=== PATIENT | male | born 1960 | race African-American/Black ===

== ENCOUNTER 2020-09-03 12:01 | Outpatient (REF) | payer OTHER, SELFPAY ==
[2020-09-03 14:12] LABS: Anion Gap 13 (12-20); Blood Urea Nitrogen 16 mg/dL (9-16); Calcium 9.3 mg/dL (8.4-10.2); Carbon Dioxide 23 mmol/L (22-29); Chloride 106 mmol/L (96-108); Estimated Glomerular Filt Rate 50; Glucose Random 113 mg/dL (60-115); Potassium 4.8 mmol/l (3.3-5.1); Sodium 137 mmol/L (135-145)
== END 2020-09-03 12:02 | disposition home or self-care (01) ==
LOC: HO.LAB 12:01
PROVIDERS: PCP Nurse Practitioner Family; Visit Provider Internal Medicine
DX: E87.6 Hypokalemia (principal)
CPT/HCPCS: 80048

== ENCOUNTER → 2020-09-11 14:03 | Outpatient (BNVA) | payer OTHER, SELFPAY | PROVIDERS: PCP Nurse Practitioner Family; Referring Provider Nurse Practitioner Family; Visit Provider Internal Medicine | DX: I95.0 Idiopathic hypotension (principal); I95.1 Orthostatic hypotension; Z79.899 Other long term (current) drug therapy | CPT/HCPCS: 99212 ==

== ENCOUNTER → 2020-11-27 13:30 | Outpatient (BNVA) | payer OTHER, SELFPAY | PROVIDERS: Visit Provider Internal Medicine | DX: Z13.89 Encounter for screening for other disorder (principal) | CPT/HCPCS: Q3014 ==

== ENCOUNTER → 2020-12-04 13:42 | Outpatient (BNVA) | payer OTHER, SELFPAY | PROVIDERS: PCP Nurse Practitioner Family; Visit Provider Internal Medicine | DX: R55 Syncope and collapse (principal); R42 Dizziness and giddiness; I95.0 Idiopathic hypotension; I95.1 Orthostatic hypotension | CPT/HCPCS: 99212 ==

== ENCOUNTER 2020-12-17 10:25 | Outpatient (REF) | payer OTHER, SELFPAY ==
--- NOTE | ~2020-12-17 | CT_ITS ---
EXAMINATION: CT CHEST WITHOUT CONTRAST CLINICAL INFORMATION: Follow-up pulmonary nodules COMPARISON: Previous chest CT most recent December 2019 TECHNIQUE: Multidetector volumetric CT imaging of the chest was done. Axial MIP volume rendering provided. Sagittal and coronal reformatted images were obtained. This CT examination was performed using dose optimization techniques as appropriate, variously including the following: *Automated exposure control *Adjustment of mA and/or kV according to patient size (this includes techniques or standardized protocols for targeted exams where dose is matched to indication/reason for exam; i.e. extremities or head) *Use of iterative reconstruction technique DLP: 215 mGy-cm FINDINGS: SWITCHBOARD OPERATOR ASSISTANT: Unremarkable LUNGS: The bilateral pulmonary nodules are stable. Largest pulmonary nodule is an 8 mm peripheral or subpleural right lower lobe nodule axial image 486 series 7. No new pulmonary nodule is seen. There is chronic scarring or subsegmental atelectasis in the lingula that is unchanged. MEDIASTINUM: There is wall thickening of the distal thoracic esophagus. The mediastinum is otherwise normal. PLEURA: There is no pleural effusion. No pleural mass or thickening. AXILLA: There are small bilateral axillary lymph nodes. No enlarged lymph nodes or chest wall mass is seen. UPPER ABDOMEN: There is diverticulosis of the colon. There is a left renal cyst that is partially visualized. There is a lipoma of the right lateral upper abdominal wall that is partially visualized OSSEOUS STRUCTURES: There is an old right posterior seventh rib fracture.. CT/CT chest wo con IMPRESSION: Stable pulmonary nodules. Question wall thickening of the distal thoracic esophagus.
== END 2020-12-17 10:26 | disposition home or self-care (01) ==
LOC: HO.CT 10:25
PROVIDERS: Visit Provider Internal Medicine
DX: R91.8 Other nonspecific abnormal finding of lung field (principal); F17.200 Nicotine dependence, unspecified, uncomplicated
CPT/HCPCS: 71250

== ENCOUNTER 2021-01-04 11:36 | Outpatient (REF) | payer OTHER, SELFPAY ==
[2021-01-04 13:04] LABS: MANUAL DIFF FLAG NO
[2021-01-04 13:23] LABS: Basophils Percent Auto 0.6 % (0-2); Eosinophils Absolute Auto 0.3 X10*3/uL (0.0-0.4); Eosinophils Percent Auto 4.3 % (0-4); Hematocrit 42.6 % (42-52); Hemoglobin 13.9 g/dl (14.0-18.0); Imm Gran Abs Auto 0.02 X10*3/uL (0.00-0.03); Imm Gran Pct Auto 0.3 % (0.0-0.4); Lymphocytes Absolute Auto 2.5 X10*3/uL (1.2-4.9); Lymphocytes Percent Auto 37.5 % (20-40); Mean Corpuscular HGB Conc 32.6 g/dl (31.0-36.0); Mean Corpuscular Hemoglobin 30.8 pg (27.0-33.0); Mean Corpuscular Volume 94.5 fL (80-98); Mean Platelet Volume 11.5 fL (9.4-12.4); Monocytes Absolute Auto 0.5 X10*3/uL (0.1-1.2); Monocytes Percent Auto 8.3 % (2-11); Neutrophils Absolute Auto 3.2 X10*3/uL (2.0-8.3); Platelet Count 222 X10*3/uL (160-400); Red Blood Count 4.51 X10*6/uL (4.60-5.80); Red Cell Distribution Width 13.5 % (11.0-16.0); White Blood Count 6.5 X10*3/uL (4.8-10.8)
[2021-01-04 13:27] LABS: Albumin Level 4.1 g/dL (3.5-5.0); Cholesterol 161 mg/dL; HDL Cholesterol 35 mg/dL; Iron 91 mcg/dL (45-160); LDL Cholesterol Calculated 98 mg/dl; Magnesium 2.3 mg/dL (1.6-2.6); Percent Iron Saturation 29 % (15-50); Phosphorus 3.5 mg/dL (2.7-4.5); Total Iron Binding Capacity 310 mcg/dL (228-428); Triglycerides 140 mg/dL; Unsaturated Iron Binding 219 ug/dL
[2021-01-04 13:34] LABS: Estimated Average Glucose 131 mg/dL; Hemoglobin A1c % 6.2 %
[2021-01-04 13:46] LABS: Anion Gap 12 (12-20); Blood Urea Nitrogen 16 mg/dL (9-16); Calcium 9.3 mg/dL (8.4-10.2); Carbon Dioxide 26 mmol/L (22-29); Chloride 106 mmol/L (96-108); Estimated Glomerular Filt Rate 55; Glucose Random 124 mg/dL (60-115); Potassium 3.8 mmol/L (3.3-5.1); Sodium 140 mmol/L (135-145)
[2021-01-04 13:51] LABS: Ferritin 36 ng/mL (20-250)
[2021-01-04 14:42] LABS: Renal w Reflex Lab Use Only Order verified
[2021-01-07 16:32] LABS: Calcium (PTHI) 9.4 mg/dL (8.6-10.3); PTHI 61 pg/mL (14-64)
== END 2021-01-04 11:37 | disposition home or self-care (01) ==
LOC: HO.LAB 11:36
PROVIDERS: Absent Provider Internal Medicine Nephrology; PCP Nurse Practitioner Family; Visit Provider Internal Medicine
DX: I95.1 Orthostatic hypotension (principal); N17.9 Acute kidney failure, unspecified
CPT/HCPCS: 36415; 80048; 80061; 82040; 82306; 82728; 83036; 83540; 83735; 83970; 84100; 84550; 85025

== ENCOUNTER → 2021-01-16 13:02 | Outpatient (REF) | payer OTHER, SELFPAY ==
--- NOTE | 2021-01-16 13:05 | CA_ITS ---
Transthoracic Echocardiogram Patient (Last, First, Middle): Addi Delgado E Gender: Male Date of : 1960 Age: 60 Procedure Date: 01/16/2021 Procedure Type: Transthoracic Echocardiogram Location: OP Height: 182.88 cm Weight: 110.68 kg BSA: 2.32 m2 Heart Rate: bpm BP: 116 / 56 mmHg Sap Bpc Architect: Referring MD: Massimo Alberto MD Grain Origination Specialist: Nadir Dunlap MD Symptoms: I95.1 - Orthostatic hypotension Study Quality: Fair ECG Rhythm: Sinus Conclusions: - 1. Low normal LV systolic function with moderate LVH with impaired relaxation filling pattern 2. Moderately dilated left atrium 3. Mild mitral regurgitation 4. Normal RV systolic pressure 5. No pericardial effusion Findings Left Ventricle Normal left ventricular cavity size. There is moderately increased left ventricular wall thickness. The left ventricular systolic function is low normal. The visually estimated ejection fraction is between 50-55%. Spectral Doppler is indicative of an impaired relaxation filling pattern. E/E prime ratio is between 8 and 15 consistent with indeterminate filling pressures. Right Ventricle Normal right ventricular cavity size and systolic function. Atria The left atrium is moderately dilated. There is no evidence of interatrial shunt. The right atrium is likely dilated. Aortic Valve The aortic valve structure and function is likely normal. There is no aortic valve stenosis. There is no aortic valve regurgitation. Mitral Valve Normal mitral valve structure and function. There is mild mitral valve regurgitation. There is no mitral valve stenosis. Pulmonic Valve The pulmonic valve was not well visualized. Tricuspid Valve Likely normal tricuspid valve structure and function. There is mild tricuspid valve regurgitation. The right ventricular systolic pressure is normal. The right ventricular systolic pressure is 30 mmHg. Normal right atrial pressure. There is no evidence of pulmonary hypertension. Great Vessels All visible segments of the aorta are normal in size. The pulmonary artery was not well visualized. Venous The inferior vena cava is normal in size and collapses greater than 50% with inspiration. Pericardium/Pleural There is no evidence of pericardial effusion. Prior Study Comparison Changes noted compared to prior study dated: 07/22/2018. LVH is more prominent Measurements 2D Linear Measurements IVSd: 1.56 0.6-0.9/0.6-1.0 cm LVIDd: 5.09 3.9-5.3/4.2-5.9 cm LVIDs: 3.53 2.0-3.6 cm LVPWd: 1.52 0.7-1.1 cm Ao Root: 3.45 2.1-3.5 cm LV Mass: 429.31 67-162/88-224 g LVOT Diam: 2.47 3.0+(-)1.3 cm Mitral Valve MV Pk E: 0.64 MV PK A: 0.82 MV Decel Time: 139.21 E/A: 0.78 E'Lateral: 0.06 E'Medial: 0.04 Decel Dane: 4.61 Aortic Valve AoV Pk Taiwo: 1.04 AoV Mn Taiwo: 0.78 AoV VTI: 0.22 AoV Pk Grad: 4.30 Aov Mn Grad: 2.72 LVOT LVOT Pk Taiwo: 0.83 LVOT Mn Taiwo: 0.53 LVOT VTI: 0.19 LVOT Pk Grad: 2.75 LVOT Mn Grad: 1.35 LVOT Diam: 2.47 LVOT Area: 4.78 Diastolic Function MV Pk E: 0.64 MV Pk A: 0.82 E/A: 0.78 E'Medial: 0.04 E' Laterial: 0.06 Tricuspid Valve TR Pk Atiwo: 2.61 TR Pk Grad: 27.27 RA Press: 3.00 RVSP: 30.00 Great Vessels Aorta Ao Root-2D: 3.45 2.0-3.7 cm Pulmonary Valve PV Pk Taiwo: 0.98 Peak PV Grad: 3.86 Updated in Other Vendor System with Status of Final Nadir Dunlap MD electronically signed on 01/16/2021 5:04:54 PM with status of Final
== END ==
LOC: HO.CARD 13:02
PROVIDERS: Visit Provider Internal Medicine
DX: I95.1 Orthostatic hypotension (principal)
CPT/HCPCS: 93306

== ENCOUNTER → 2021-04-04 14:57 | Outpatient (BNVA) | payer OTHER, SELFPAY | PROVIDERS: PCP Nurse Practitioner Family; Referring Provider Nurse Practitioner Family; Visit Provider Internal Medicine | DX: I95.1 Orthostatic hypotension (principal); R42 Dizziness and giddiness; I95.0 Idiopathic hypotension | CPT/HCPCS: 93005; 99212 ==

== ENCOUNTER → 2021-04-26 09:18 | Outpatient (BNVA) | payer OTHER, SELFPAY | PROVIDERS: PCP Nurse Practitioner Family; Visit Provider Nurse Practitioner | DX: K21.9 Gastro-esophageal reflux disease without esophagitis (principal); K58.2 Mixed irritable bowel syndrome; K31.84 Gastroparesis | CPT/HCPCS: Q3014 ==

== ENCOUNTER 2021-05-20 07:58 | Emergency (ER) | payer OTHER, SELFPAY ==
--- NOTE | ~2021-05-20 | XR_ITS ---
EXAMINATION: RIGHT FOOT AND ANKLE X-RAY CLINICAL INFORMATION: Fall. Swelling. COMPARISON: None TECHNIQUE: 3 views of the right foot and 3 views of the right ankle FINDINGS: Right foot: Bone alignment is normal. There is a fracture of the right distal fibular shaft. No other fracture is seen. There is arthritis at the first MTP joint. Soft tissues are unremarkable. Right ankle: There is a fracture of the distal fibular shaft. There is slight lateral and posterior displacement of the lateral malleolus with respect to the more proximal shaft. No other fracture is seen. The ankle mortise is normal. There is lateral soft tissue swelling. XR/XR ankle RT 2V IMPRESSION: Fracture of the distal right fibular shaft.
--- NOTE | ~2021-05-20 | XR_ITS ---
EXAMINATION: RIGHT FOOT AND ANKLE X-RAY CLINICAL INFORMATION: Fall. Swelling. COMPARISON: None TECHNIQUE: 3 views of the right foot and 3 views of the right ankle FINDINGS: Right foot: Bone alignment is normal. There is a fracture of the right distal fibular shaft. No other fracture is seen. There is arthritis at the first MTP joint. Soft tissues are unremarkable. Right ankle: There is a fracture of the distal fibular shaft. There is slight lateral and posterior displacement of the lateral malleolus with respect to the more proximal shaft. No other fracture is seen. The ankle mortise is normal. There is lateral soft tissue swelling. XR/XR foot RT min 3V IMPRESSION: Fracture of the distal right fibular shaft.
[2021-05-20 08:21] VITALS: BP 102/63; PULSE 85; RESP 18; TEMP 36.6; O2SAT 96; BMI 34.0
--- NOTE | 2021-05-20 10:28 | ED.LOWEXIN ---
HPI - Extremity Injury (Lower) General Chief Complaint: Extremity Injury, Lower Stated Complaint: possible broken foot Time Seen by Provider: 05/20/21 09:13 Source: patient Mode of arrival: ambulatory History of Present Illness HPI Narrative: 60-year-old male with a past medical history of asthma, orthostatic hypotension, smoker, presenting to the ED c/o right ankle pain and swelling with inability to ambulate since yesterday morning s/p fall/syncopal episode. Patient reports woke up, stood up and had syncopal episode, landing on foot, denies head trauma, reports multiple syncopal episodes with postural changes which he has been dealing with chronically x6 months due to orthostatic hypotension. 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 Denies CP/SOB, headache, nausea/vomiting. Reports mild foot paresthesias. MD complaint: ankle injury and foot injury Related Data Home Medications Medication Instructions Recorded Confirmed albuterol sulfate 90 mcg/actuation 1 inh INHALATION QID 09/11/20 04/04/21 aerosol inhaler (Ventolin HFA) atorvastatin 10 mg tablet 10 mg PO DAILY 09/11/20 04/04/21 beclomethasone dipropionate 80 1 inh INHALATION BID 09/11/20 04/04/21 mcg/actuation HFA breath activated aerosol (Qvar RediHaler) multivitamin 1 tab PO DAILY 09/11/20 04/04/21 venlafaxine 150 mg 150 mg PO DAILY 09/11/20 04/04/21 capsule,extended release 24 hr (Effexor XR) lorazepam 1 mg tablet 1 mg PO BID PRN tab 11/27/20 04/04/21 aripiprazole 20 mg tablet 20 mg PO BEDTIME 04/04/21 04/04/21 modafinil 200 mg tablet 200 mg PO BEDTIME 04/04/21 04/04/21 naltrexone 50 mg tablet 50 mg PO QAM 04/04/21 04/04/21 Previous Rx's Medication Instructions Recorded midodrine 10 mg tablet 10 mg PO TID #270 cap 11/01/20 potassium chloride 20 mEq 40 meq PO BID #120 cap 01/02/21 tablet,extended release fludrocortisone 0.1 mg tablet 0.6 mg PO DAILY #180 tab 01/14/21 meclizine 25 mg tablet 25 mg PO DAILY PRN #30 cap 01/30/21 sodium chloride 1 gram tablet 2,000 mg PO DAILY 30 Days #60 cap 03/04/21 metoclopramide HCl 5 mg tablet 5 - 10 mg PO QID PRN #180 cap 03/25/21 omeprazole 20 mg capsule,delayed 20 mg PO BID #60 cap 05/07/21 release ibuprofen 600 mg tablet 600 mg PO Q8H PRN #14 tab 05/20/21 Allergies Allergy/AdvReac Type Severity Reaction Status Date / Time Fish Containing Products Allergy Severe ANAPHYLAXIS Verified 04/26/21 09:19 nut - unspecified [nut] Allergy Severe ANAPHYLAXIS Verified 04/26/21 09:19 Review of Systems Review of Systems: Constitutional: No Fever, No Chills Cardiovascular: No Chest Pain, No SOB Respiratory: No Cough, No Dyspnea Gastrointestinal: No Nausea, No Vomiting, No Abdominal pain Musculoskeletal: + joint pain, No Myalgias, + Joint Swelling Skin: No Skin Lesions, No rash Neuro: No Weakness, No Numbness, + Paresthesias, +syncope, No Dizziness, No Headache Yes all other systems are reviewed and are negative [facility] Past Medical History Attestation statement: The following information was validated with the patient. Medical History (Updated 05/20/21 @ 12:08 by MEHRAN Gordon) Asthma Dizziness and giddiness Idiopathic hypotension Orthostatic hypotension Pulmonary nodules Smoker Syncope and collapse Surgical History History of esophagogastroduodenoscopy (EGD) History of hernia repair History of tonsillectomy Hx of colonoscopy Family History Family History Father No problems noted. Mother No problems noted. Social History Social History Alcohol intake: never Cigarettes Per Day: 10 Smoked in Last 30 Days: No Use of substances other than those prescribed or required for medical reasons: No Advance Directives: No Advance Directives Information Provided: No Physical Exam Vital Signs: Vital Signs: Last Vital Signs Temp 97.9 F 05/20/21 08:21 Pulse 85 05/20/21 08:21 Resp 18 05/20/21 08:21 BP 102/63 05/20/21 08:21 Pulse Ox 96 08/02/21 08:21 Body Mass Index 34.0 Const: General: cooperative and healthy appearing Orientation/consciousness: patient oriented x3 Limitations: no limitations HENMT: Head: Yes normal to inspection Ears: hearing grossly normal bilaterally General nose exam: Normal external nose present Face and sinus: Yes normal facial exam Eyes: General: appearance normal, both eyes and all related structures EOM: EOMs intact bilaterally Neck: Neck: Yes normal visual inspection Resp: Effort & Inspection: normal respiratory effort Auscultation: clear to auscultation bilaterally Cardio: Rate: regular rate Heart sounds: S1 normal heart sound present and S2 normal heart sound present Skin: Rashes: no rashes Wounds: no wounds Neuro: General: patient oriented x3 Gait exam (Neuro): Normal gait present Extrem: General: Yes normal to inspection Course Course Course Narrative: XR ankle RT 2V IMPRESSION: Fracture of the distal right fibular shaft.? >> results discussed with patient, will place and posterior short-leg with stirrup and supplied with crutches to be nonweightbearing and follow up with Orthopedics in 1 week -1229--received a call from pharmacy patient is currently taking Naltrexone daily for cravings, cancelled [place] prescription MDM - Extremity Injury (Lower) MDM Narrative Medical decision making narrative: 60-year-old male with a past medical history of asthma, orthostatic hypotension, smoker, presenting to the ED c/o right ankle pain and swelling with inability to ambulate since yesterday morning s/p fall/syncopal episode. Patient reports woke up, stood up and had syncopal episode, landing on foot, denies head trauma, reports multiple syncopal episodes with postural changes which he has been dealing with chronically x6 months due to orthostatic hypotension. 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 Denies CP/SOB, headache, nausea/vomiting. Reports mild foot paresthesias. Medical Records Attestation: I reviewed the patient's medical records. Lab Data Attestation: I reviewed the patient's lab results. Discharge Plan Discharge Clinical Impression: Fracture of shaft of right fibula Qualifiers: Encounter type: initial encounter Fracture type: closed Fracture morphology: unspecified fracture morphology Qualified Code(s): S82.401A - Unspecified fracture of shaft of right fibula, initial encounter for closed fracture Patient Disposition: Home, Self-Care Instructions: Ankle Fracture (ED) Additional Instructions: You have a fracture of your ankle Keep splint on, dry, and clean, you need to follow-up with resource specialist teacher in 1 week DO NOT PUT ANY WEIGHT ON HER RIGHT LEG ICE AND ELEVATE YOUR RIGHT LEG IN ADDITION TAKE IBUPROFEN AND TYLENOL, HOWEVER BE AWARE KAYCEE HAS TYLENOL MIXED IN DO NOT EXCEED 4 G OF TYLENOL IN 1 DAY If pain becomes unbearable, toes become numb or increasingly swollen wrist move Vinayak wrap and return to the ED immediately Prescriptions: New ibuprofen 600 mg tablet 600 mg PO Q8H PRN (Reason: fever or pain) Qty: 14 RF: 0 No Action midodrine 10 mg tablet 10 mg PO TID Qty: 270 RF: 3 potassium chloride 20 mEq tablet extended release 40 meq PO BID Qty: 120 RF: 0 fludrocortisone 0.1 mg tablet 0.6 mg PO DAILY Qty: 180 RF: 5 meclizine 25 mg tablet 25 mg PO DAILY PRN (Reason: for vertigo) Qty: 30 RF: 3 sodium chloride 1 gram tablet 2,000 mg PO DAILY 30 Days Qty: 60 RF: 5 metoclopramide HCl 5 mg tablet 5 - 10 mg PO QID PRN (Reason: nausea and vomiting) Qty: 180 RF: 4 omeprazole 20 mg capsule,delayed release(DR/EC) 20 mg PO BID Qty: 60 RF: 6 atorvastatin 10 mg tablet 10 mg PO DAILY RF: 0 multivitamin Tablet 1 tab PO DAILY RF: 0 venlafaxine [Effexor XR] 150 mg capsule,extended release 24hr 150 mg PO DAILY RF: 0 albuterol sulfate [Ventolin HFA] 90 mcg/actuation HFA aerosol inhaler 1 inh inhalation QID RF: 0 Qvar RediHaler 80 mcg/actuation HFA aerosol breath activated 1 inh inhalation BID RF: 0 lorazepam 1 mg tablet 1 mg PO BID PRNRF: 0 aripiprazole 20 mg tablet 20 mg PO BEDTIME RF: 0 modafinil 200 mg tablet 200 mg PO BEDTIME RF: 0 naltrexone 50 mg tablet 50 mg PO QAM RF: 0 Referrals: Sailaja Choi MD [Physician] - 1 week Interventions: ED Discharge Assessment Last Done: 05/20/21 12:18 Discharge Date/Time: 05/20/21 12:22
[2021-05-20] MEDS: Ibuprofen 800 MG TABLET PO (12:15)
[2021-05-20] MEDS: oxyCODONE HCl Immed Release 5 MG TABLET PO (12:15)
== END 2021-05-20 12:22 | disposition home or self-care (01) ==
PROVIDERS: Emergency Provider Emergency Medicine; PCP Nurse Practitioner Family
DX: S82.401A Unspecified fracture of shaft of right fibula, initial encounter for closed fracture (principal); X50.1XXA Overexertion from prolonged static or awkward postures, initial encounter; I95.1 Orthostatic hypotension; Y93.89 Activity, other specified; Y92.019 Unspecified place in single-family (private) house as the place of occurrence of the external cause; Y99.9 Unspecified external cause status; F17.210 Nicotine dependence, cigarettes, uncomplicated
CPT/HCPCS: 29515; 73600; 73630; 99283; 99284

== ENCOUNTER → 2021-05-24 07:52 | Outpatient (BNVA) | payer OTHER, SELFPAY | PROVIDERS: PCP Nurse Practitioner Family; Visit Provider Physician Assistant | DX: S82.831A Other fracture of upper and lower end of right fibula, initial encounter for closed fracture (principal) | CPT/HCPCS: 99202 ==

== ENCOUNTER 2021-05-30 05:58 | Day surgery (SDC) | payer OTHER, SELFPAY ==
--- NOTE | 2021-05-27 14:03 | P.CONAN_ITS ---
Documented by User: Peggy Colinney 05/27/21 14:08 HPI - Anesthesia Eval Consult details Narrative: 60yo M for Right Ankle Fracture ORIF Orthostatic hypotn: Midodrine, florinef, salt supplement. Follows cardiac and renal PMFSH Active Problems Active Problems: All Active Problems (Updated 05/24/21 @ 08:53 by Philipp Gomez PA-C) Closed fracture of right distal fibula (Acute) Tubular adenoma of colon (Acute) Smoker (Acute) Pulmonary nodules (Acute) Asthma (Acute) Gastroparesis (Acute) Irritable bowel syndrome with both constipation and diarrhea (Acute) GERD (gastroesophageal reflux disease) (Acute) Orthostatic hypotension (Acute) Idiopathic hypotension (Acute) Dizziness and giddiness (Acute) Syncope and collapse (Acute) Past Medical History Medical History Asthma Dizziness and giddiness Idiopathic hypotension Orthostatic hypotension Pulmonary nodules Smoker Syncope and collapse Family History Family History Father No problems noted. Mother No problems noted. Surgical History Surgical History History of esophagogastroduodenoscopy (EGD) History of hernia repair History of tonsillectomy Hx of colonoscopy Social History Social History Alcohol intake: never Patient Tobacco Use Status: Current everyday Tobacco user Tobacco use type: Cigarette Cigarettes Per Day: 10 Are you DNR?: No Advance Directives: No Advance Directives Information Provided: Yes Advance Directives on File: No Current occupational status: disabled Current occupation: Rt handed Meds Allergies Allergy/AdvReac Type Severity Reaction Status Date / Time Fish Containing Products Allergy Severe ANAPHYLAXIS Verified 05/24/21 08:13 nut - unspecified [nut] Allergy Severe ANAPHYLAXIS Verified 05/24/21 08:13 Home Medications Medication Instructions Recorded Confirmed Last Taken Type albuterol sulfate 90 mcg/actuation 1 inh INHALATION QID 09/11/20 04/04/21 05/30/21 History aerosol inhaler (Ventolin HFA) atorvastatin 10 mg tablet 10 mg PO DAILY 09/11/20 04/04/21 05/30/21 History beclomethasone dipropionate 80 1 inh INHALATION BID 09/11/20 04/04/21 05/30/21 History mcg/actuation HFA breath activated aerosol (Qvar RediHaler) multivitamin 1 tab PO DAILY 09/11/20 04/04/21 05/30/21 History venlafaxine 150 mg 150 mg PO DAILY 09/11/20 04/04/21 05/30/21 History capsule,extended release 24 hr (Effexor XR) lorazepam 1 mg tablet 1 mg PO BID PRN tab 11/27/20 04/04/21 Unknown History aripiprazole 20 mg tablet 20 mg PO BEDTIME 04/04/21 04/04/21 Unknown History modafinil 200 mg tablet 200 mg PO BEDTIME 04/04/21 04/04/21 Unknown History naltrexone 50 mg tablet 50 mg PO QAM 04/04/21 04/04/21 05/30/21 History Exam Exam Date and Time: May 27, 2021 1403 Pertinent Lab Results Pertinent Lab Results: Laboratory Tests 01/04/21 01/04/21 12:06 12:06 WBC 6.5 Hgb 13.9 L Hct 42.6 Plt Count 222 Sodium 140 Potassium 3.8 Chloride 106 Carbon Dioxide 26 BUN 16 Creatinine 1.33 Narrative Narrative: EKG 03/2021 sinus rhythm, 87/Min; no significant ST-T changes and otherwise unremarkable ECHO 12/2020 Conclusions: -? 1. Low normal LV systolic function with moderate LVH with ? ? impaired relaxation filling pattern? 2. Moderately dilated left atrium? 3. Mild mitral regurgitation ? 4. Normal RV systolic pressure ? 5. No pericardial effusion ? Assessment and Plan Assessment Anesthesia Assessment: Chart Reviewed Documented by User: Ray Oshea MD 05/30/21 09:29 [facility] Past Medical History Medical History Asthma Dizziness and giddiness Idiopathic hypotension Orthostatic hypotension Pulmonary nodules Smoker Syncope and collapse Family History Family History Father No problems noted. Mother No problems noted. Family history of problems with anesthesia: No Surgical History Surgical History History of esophagogastroduodenoscopy (EGD) History of hernia repair History of tonsillectomy Hx of colonoscopy History of Problems with Anesthesia: No Social History Social History Alcohol intake: never Patient Tobacco Use Status: Current everyday Tobacco user Tobacco use type: Cigarette Cigarettes Per Day: 10 Are you DNR?: No Advance Directives: No Advance Directives Information Provided: Yes Advance Directives on File: No Current occupational status: disabled Current occupation: Rt handed Meds Allergies Allergy/AdvReac Type Severity Reaction Status Date / Time Fish Containing Products Allergy Severe ANAPHYLAXIS Verified 05/24/21 08:13 nut - unspecified [nut] Allergy Severe ANAPHYLAXIS Verified 05/24/21 08:13 Home Medications Medication Instructions Recorded Confirmed Last Taken Type albuterol sulfate 90 mcg/actuation 1 inh INHALATION QID 09/11/20 04/04/21 05/30/21 History aerosol inhaler (Ventolin HFA) atorvastatin 10 mg tablet 10 mg PO DAILY 09/11/20 04/04/21 05/30/21 History beclomethasone dipropionate 80 1 inh INHALATION BID 09/11/20 04/04/21 05/30/21 History mcg/actuation HFA breath activated aerosol (Qvar RediHaler) multivitamin 1 tab PO DAILY 09/11/20 04/04/21 05/30/21 History venlafaxine 150 mg 150 mg PO DAILY 09/11/20 04/04/21 05/30/21 History capsule,extended release 24 hr (Effexor XR) lorazepam 1 mg tablet 1 mg PO BID PRN tab 11/27/20 04/04/21 Unknown History aripiprazole 20 mg tablet 20 mg PO BEDTIME 04/04/21 04/04/21 Unknown History modafinil 200 mg tablet 200 mg PO BEDTIME 04/04/21 04/04/21 Unknown History naltrexone 50 mg tablet 50 mg PO QAM 04/04/21 04/04/21 05/30/21 History Exam Airway Mallampati Class: II TM Dist: >3cm Neck ROM: Full Assessment and Plan Final Anesthetic Review Family History of Problems with Anesthesia: No History of Problems with Anesthesia: No NPO: Yes ASA Class: III Final Preanesthetic Review: No Changes in Pt Med Stat, Meds/Allgs Chart Revie thu, Consent Obtained/Reviewed and Anes Risks/Benef Reviewed Patient Risk: Intermediate Procedure Risk: Low Anesthetic Plan Anesthetic Plan: GA Disposition: Standard PACU
[2021-05-29 07:59] VITALS: BMI 34.0
[2021-05-30] VITALS (7 sets, daily range): BP systolic 122–149; BP diastolic 63–96; PULSE 80–84; RESP 16–18; TEMP 36.4–36.7; O2SAT 95–96
--- NOTE | ~2021-05-30 | FL_ITS ---
EXAMINATION: XR FLUOROSCOPY WITH IMAGES CLINICAL INFORMATION: Fracture right ankle. COMPARISON: Right ankle 05/20/2021 TECHNIQUE: Fluoroscopy performed by . Fluoroscopy time: Less than 10 seconds DAP: [id number] mGycm2 Images: 2 FINDINGS: There is a lateral plate and screws stabilizing oblique distal fibular fracture and alignment. The ankle mortise and subtalar joints are normal. Moderate lateral malleolar soft tissue swelling seen. FL/FL guidance in OR IMPRESSION: Lateral plate and screws stabilizing oblique distal fibular fracture in alignment.
[2021-05-30] MEDS: Lactated Ringers 1,000 ML 100 ML IVCONT (06:43)
--- NOTE | 2021-05-30 07:31 | MHC.SHP ---
Pre-Procedural Eval Section A Date of Service: 05/30/21 The patient is an INPATIENT: No Changes since office visit: No Cold of Flu in the past 2 weeks, No New Medical Problems, No Changes in Medication and No Patient answered all questions The History & Physical has been completed within 30 days and I have reviewed it.: Yes Section B Chief Complaint: fx ankle Allergies: Allergies Allergy/AdvReac Type Severity Reaction Status Date / Time Fish Containing Products Allergy Severe ANAPHYLAXIS Verified 05/24/21 08:13 nut - unspecified [nut] Allergy Severe ANAPHYLAXIS Verified 05/24/21 08:13 Plan I have reviewed the history and physical and performed a pertinent physical examination on my patient. No changes have occurred unless specified.
--- NOTE | 2021-05-30 10:46 | W.PM.OPN ---
Operative Note Operative Note Date of Service: 05/30/21 Narrative: OPERATIVE FIXATION ANKLE SURGEON: Dr Tato Mcconnell) Uzair HAWLEY ENTRY DRIVER OPERATOR: Fatimah CANCHOLA PREOP DIAGNOSIS: Bimalleolar Fracture equivalent right ankle POSTOP DIAGNOSIS: Same OPERATIVE PROCEDURE: ORIF FRACTURED right ANKLE CLINICAL NOTE: This gentlemanfell and injured his ankle. She suffered the above-noted injury. After explaining the risks, benefits, alternatives of the surgery and answering all hisquestions, it was mutually agreed upon to carry out the following procedure. OPERATIVE DETAILS Under a general and regional anesthetic patient was placed supine on the operating table. A pneumatic tourniquet cuff was placed around the upper right thigh and inflated to 300 mm of mercury at the beginning of the case. The right foot and ankle were then prepped and draped in standard fashion. Surgical time-out was then performed. Patient was identified. Site confirmed. Procedure confirmed. Medical and allergy history were reviewed. Preoperative antibiotics were given. Standard DVT prophylaxis in place. All other items were discussed and agreed upon. A standard approach to the lateral malleolus was carried out. This was taken down through the subcutaneous tissues with hemostasis achieved along the way using electrocautery. Subperiosteal dissection was then performed both anteriorly and posteriorly. The fracture was identified. It was open and curetted clean of fracture clot. It was then thoroughly irrigated. The fracture was then reduced into an anatomical position. A single interfragmentary screw was placed in standard fashion with over drilling the proximal cortex. It was then measured and the appropriate length cortical screw inserted with excellent purchase and compression of the fracture site. Following this a lateral malleolar plate was selected of the appropriate length. It was laid against the lateral malleolus. The most distal hole was drilled measured and a nonlocking screw inserted. Approximately a the 3rd proximal hole was drilled measured in the appropriate length nonlocking screw inserted. This tightened down and brought the plate to the bone. Following this the most distal 3holes were drilled measured and locking screws inserted. Similarly the 2 remaining proximal screw holes were drilled, measured and the appropriate length nonlocking screws inserted. []. At this point the fracture was reduced in being held appropriately and we turned our attention to the medial side. At this point final imaging was taken in the AP and lateral positions. This demonstrated the fractures to be reduced anatomically. Mortise anatomically reduced. All the hardware to be in appropriate position. Therefore proceeded to closure. Closure was then performed. The deep tissue was lightly approximated using 2-0 Polysorb. The skin was approximated using interrupted 2-0 Polysorb. The skin was closed with christen. Sterile dressing was then placed. The foot that was then immobilized with the foot at 90 degrees. The tourniquet was let down total tourniquet time 33 minutes The anesthesia was then reversed. The patient was transferred supine onto the room bed and then taken to the recovery room in good condition. Intraoperatively there was approximately 10cc of blood loss. No intraop complications.
== END 2021-05-30 10:38 | disposition home or self-care (01) ==
PROVIDERS: PCP Nurse Practitioner Family; Visit Provider Orthopaedic Surgery
PROC: (CPT 27792; principal; 2021-05-30 07:30)
DX: S82.61XA Displaced fracture of lateral malleolus of right fibula, initial encounter for closed fracture (principal); W18.39XA Other fall on same level, initial encounter; Z91.81 History of falling; Y93.9 Activity, unspecified; Y92.9 Unspecified place or not applicable; Y99.8 Other external cause status; I95.0 Idiopathic hypotension; I95.1 Orthostatic hypotension; R91.8 Other nonspecific abnormal finding of lung field; J45.909 Unspecified asthma, uncomplicated; F17.210 Nicotine dependence, cigarettes, uncomplicated; Z79.899 Other long term (current) drug therapy
CPT/HCPCS: 27792; C1713; J0690; J1100; J2250; J2405; J3010

== ENCOUNTER 2021-06-07 07:21 | Outpatient (REF) | payer OTHER, SELFPAY ==
--- NOTE | ~2021-06-07 | XR_ITS ---
EXAMINATION: XR ANKLE, RIGHT CLINICAL INFORMATION: Pain. COMPARISON: 05/20/2021 TECHNIQUE: Three-view right ankle. FINDINGS: Since previous study there has been side plate and screw fixation of the distal right fibular fracture. Skin christen in place. There remains approximately 5 mm in width in the medial joint space compartment. XR/XR ankle RT min 3V IMPRESSION: Stable appearance of the right ankle status post sideplate and screw fixation of distal fibular fracture. 5 mm of the medial joint space without talar tilt identified on nonstressed imaging.
== END 2021-06-07 07:22 | disposition home or self-care (01) ==
LOC: HO.HOSX 07:21
PROVIDERS: Visit Provider Physician Assistant
DX: S82.831A Other fracture of upper and lower end of right fibula, initial encounter for closed fracture (principal)
CPT/HCPCS: 73610; 99212

== ENCOUNTER → 2021-06-27 14:00 | Outpatient (BNVA) | payer OTHER, SELFPAY | PROVIDERS: PCP Nurse Practitioner Family; Visit Provider Internal Medicine | DX: R91.8 Other nonspecific abnormal finding of lung field (principal); I95.0 Idiopathic hypotension; I95.1 Orthostatic hypotension; J45.909 Unspecified asthma, uncomplicated; F17.200 Nicotine dependence, unspecified, uncomplicated; Z91.018 Allergy to other foods; Z79.899 Other long term (current) drug therapy | CPT/HCPCS: 99212 ==

== ENCOUNTER 2021-07-05 07:20 | Outpatient (REF) | payer OTHER, SELFPAY ==
--- NOTE | ~2021-07-05 | XR_ITS ---
EXAMINATION: XR ANKLE, RIGHT CLINICAL INFORMATION: Pain COMPARISON: Right ankle radiograph from 06/07/2021 TECHNIQUE: AP, lateral, and mortise views of the right ankle. FINDINGS: Redemonstration of plate and screw fixation along the distal fibula with a orthogonally placed threaded screw. Orthopedic hardware is grossly intact. Stable mild widening of the medial joint space. Pes planus. No acute visible fracture or dislocation. Interval removal of skin christen with mild soft tissue swelling overlying the lateral ankle. XR/XR ankle RT min 3V IMPRESSION: 1. Redemonstration of plate and screw fixation along the distal fibula with a orthogonally placed threaded screw, orthopedic hardware is grossly intact. 2. Stable mild widening of the medial joint space. 3. Interval removal of skin christen with mild soft tissue swelling overlying the lateral ankle.
== END 2021-07-05 07:21 | disposition home or self-care (01) ==
LOC: HO.HOSX 07:20
PROVIDERS: Visit Provider Physician Assistant
DX: S82.831D Other fracture of upper and lower end of right fibula, subsequent encounter for closed fracture with routine healing (principal)
CPT/HCPCS: 73610; 99212

== ENCOUNTER → 2021-08-02 09:15 | Outpatient (BNVA) | payer OTHER, SELFPAY | PROVIDERS: Visit Provider Physician Assistant | DX: Z96.661 Presence of right artificial ankle joint (principal); F17.210 Nicotine dependence, cigarettes, uncomplicated; Z91.018 Allergy to other foods; Z91.010 Allergy to peanuts; Z91.013 Allergy to seafood | CPT/HCPCS: 99212 ==

== ENCOUNTER 2021-09-13 09:34 | Outpatient (REF) | payer OTHER, SELFPAY ==
[2021-09-13 11:58] LABS: Alanine Aminotransferase 31 U/L (0-40); Albumin Level 4.2 g/dL (3.5-5.0); Alkaline Phosphatase 106 U/L (39-117); Anion Gap 12 (12-20); Aspartate Amino Transferase 14 U/L (5-37); Bilirubin Total 0.2 mg/dL (0.0-1.0); Blood Urea Nitrogen 12 mg/dL (9-16); Calcium 9.1 mg/dL (8.4-10.2); Carbon Dioxide 24 mmol/L (22-29); Chloride 108 mmol/L (96-108); Cholesterol 197 mg/dL; Estimated Glomerular Filt Rate > 60; Glucose Fasting 148 mg/dL (60-99); HDL Cholesterol 31 mg/dL; LDL Cholesterol Calculated 124 mg/dl; Potassium 4.3 mmol/L (3.3-5.1); Sodium 140 mmol/L (135-145); Total Protein 7.3 g/dL (6.5-8.0); Triglycerides 212 mg/dL
[2021-09-13 12:08] LABS: Prostate Specific Antigen Scr 0.86 ng/mL (<0.05-4.0)
[2021-09-13 13:02] LABS: Free T4 (Free Thyroxine) 0.77 ng/dL (0.71-1.85)
== END 2021-09-13 09:35 | disposition home or self-care (01) ==
LOC: HO.LAB 09:34
PROVIDERS: Absent Provider Nurse Practitioner Family; PCP Nurse Practitioner Family; Visit Provider Internal Medicine
DX: Z12.5 Encounter for screening for malignant neoplasm of prostate (principal); I95.1 Orthostatic hypotension
CPT/HCPCS: 36415; 80048; 80053; 80061; 84153; 84439; 84443

== ENCOUNTER → 2021-10-29 09:59 | Outpatient (BNVA) | payer OTHER, SELFPAY | PROVIDERS: PCP Nurse Practitioner Family; Referring Provider Nurse Practitioner Family; Visit Provider Nurse Practitioner | DX: K31.84 Gastroparesis (principal); K58.2 Mixed irritable bowel syndrome; K21.9 Gastro-esophageal reflux disease without esophagitis; D12.6 Benign neoplasm of colon, unspecified | CPT/HCPCS: 99212 ==

== ENCOUNTER → 2021-11-25 08:54 | Outpatient (BNVA) | payer OTHER, SELFPAY | PROVIDERS: PCP Nurse Practitioner Family; Referring Provider Nurse Practitioner Family; Visit Provider Internal Medicine | DX: I95.0 Idiopathic hypotension (principal); I95.1 Orthostatic hypotension; R55 Syncope and collapse; R42 Dizziness and giddiness | CPT/HCPCS: 99212 ==

== ENCOUNTER → 2021-12-24 13:55 | Outpatient (BNVA) | payer OTHER, SELFPAY | PROVIDERS: PCP Nurse Practitioner Family; Visit Provider Internal Medicine | DX: J45.909 Unspecified asthma, uncomplicated (principal); R91.8 Other nonspecific abnormal finding of lung field; F17.210 Nicotine dependence, cigarettes, uncomplicated | CPT/HCPCS: 99212 ==

== ENCOUNTER 2022-01-22 08:59 | Outpatient (REF) | payer OTHER, SELFPAY ==
[2022-01-22 11:04] LABS: Alanine Aminotransferase 19 U/L (0-40); Albumin Level 3.9 g/dL (3.5-5.0); Alkaline Phosphatase 88 U/L (39-117); Anion Gap 11 (12-20); Aspartate Amino Transferase 11 U/L (5-37); Bilirubin Total 0.3 mg/dL (0.0-1.0); Blood Urea Nitrogen 23 mg/dL (9-16); Carbon Dioxide 24 mmol/L (22-29); Chloride 108 mmol/L (96-108); Cholesterol 158 mg/dL; Estimated Glomerular Filt Rate 48; Glucose Fasting 126 mg/dL (60-99); HDL Cholesterol 24 mg/dL; Potassium 4.5 mmol/L (3.3-5.1); Sodium 138 mmol/L (135-145); Triglycerides 429 mg/dL
[2022-01-22 11:09] LABS: TSH reflex Free T4 2.77 uIU/mL (0.32-4.0)
== END 2022-01-22 09:00 | disposition home or self-care (01) ==
LOC: HO.LAB 08:59
PROVIDERS: PCP Nurse Practitioner Family; Visit Provider Nurse Practitioner Family
DX: E78.5 Hyperlipidemia, unspecified (principal); R79.89 Other specified abnormal findings of blood chemistry
CPT/HCPCS: 36415; 80053; 80061; 84443

== ENCOUNTER 2022-03-12 08:16 | Day surgery (SDC) | payer OTHER, SELFPAY ==
[2022-03-06 14:20] VITALS: BMI 34.9
--- NOTE | 2022-03-11 10:03 | HO.ANESPROP2 ---
Documented by User: Peggy Lake NP 03/11/22 10:04 HPI - Anesthesia Eval Consult details Narrative: 61yo M for Colonoscopy PMFSH Active Problems Active Problems: All Active Problems (Updated 03/06/22 @ 14:19 by Mari Nam RN) GERD (gastroesophageal reflux disease) (Acute) Irritable bowel syndrome with both constipation and diarrhea (Acute) Gastroparesis (Acute) Tubular adenoma of colon (Acute) Closed fracture of right distal fibula (Acute) Screening PSA (prostate specific antigen) (Acute) Physical exam (Acute) Elevated TSH (Acute) Dyslipidemia (Acute) Smoker (Acute) Smoker (Acute) Pulmonary nodules (Acute) Asthma (Acute) Orthostatic hypotension (Acute) Idiopathic hypotension (Acute) Dizziness and giddiness (Acute) Syncope and collapse (Acute) Past Medical History Medical History Asthma Dizziness and giddiness GERD (gastroesophageal reflux disease) Idiopathic hypotension Orthostatic hypotension PTSD (post-traumatic stress disorder) Pulmonary nodules Schizophrenia Smoker Smoker Syncope and collapse Family History Family History Father No problems noted. Mother No problems noted. Family history of problems with anesthesia: No Surgical History Surgical History H/O colonoscopy History of esophagogastroduodenoscopy (EGD) History of hernia repair History of open reduction and internal fixation (ORIF) procedure History of tonsillectomy Hx of colonoscopy History of Problems with Anesthesia: No Social History Social History Housing: House Alcohol intake: never Patient Tobacco Use Status: Current everyday Tobacco user Tobacco use type: Cigarette Cigarettes Per Day: 5 Second Hand Smoke Exposure: No Use of substances other than those prescribed or required for medical reasons: No Are you DNR?: No Advance Directives: No Advance Directives Information Provided: Yes Current occupational status: disabled Current occupation: Rt handed Meds Allergies Allergy/AdvReac Type Severity Reaction Status Date / Time Fish Containing Products Allergy Severe ANAPHYLAXIS Verified 12/24/21 14:50 nut - unspecified [nut] Allergy Severe ANAPHYLAXIS Verified 12/24/21 14:50 Home Medications Medication Instructions Recorded Confirmed Last Taken Type multivitamin 1 tab PO DAILY 09/11/20 03/06/22 05/30/21 History venlafaxine 150 mg 150 mg PO DAILY 09/11/20 03/06/22 05/30/21 History capsule,extended release 24 hr (Effexor XR) lorazepam 1 mg tablet 1 mg PO BID PRN tab 11/27/20 03/06/22 Unknown History aripiprazole 20 mg tablet 20 mg PO BEDTIME 04/04/21 03/06/22 Unknown History modafinil 200 mg tablet 200 mg PO BEDTIME 04/04/21 03/06/22 Unknown History droxidopa 100 mg capsule 100 mg PO BID 07/08/21 03/06/22 Unknown History Exam Exam Date and Time: March 11, 2022 1003 Height,Weight and Vital Signs: Height 5 ft 11 in Weight 113.852 kg Pertinent Lab Results Pertinent Lab Results: Laboratory Tests 01/04/21 01/22/22 12:06 09:35 WBC 6.5 Hgb 13.9 L Hct 42.6 Plt Count 222 Sodium 138 Potassium 4.5 Chloride 108 Carbon Dioxide 24 BUN 23 H Creatinine 1.49 H Narrative Narrative: EKG 03/2021 sinus rhythm, 87/Min; no significant ST-T changes and otherwise unremarkable ECHO 12/2020 Conclusions: -? 1. Low normal LV systolic function with moderate LVH with ? ? impaired relaxation filling pattern? 2. Moderately dilated left atrium? 3. Mild mitral regurgitation ? 4. Normal RV systolic pressure ? 5. No pericardial effusion ?? Assessment and Plan Assessment Anesthesia Assessment: Chart Reviewed Final Anesthetic Review Family History of Problems with Anesthesia: No History of Problems with Anesthesia: No Documented by User: Prema Rodriguez MD 03/12/22 09:51 [facility] Active Problems Active Problems: All Active Problems (Updated 03/06/22 @ 14:19 by Mari Nam RN) GERD (gastroesophageal reflux disease) (Acute) Irritable bowel syndrome with both constipation and diarrhea (Acute) Gastroparesis (Acute) Tubular adenoma of colon (Acute) Closed fracture of right distal fibula (Acute) Screening PSA (prostate specific antigen) (Acute) Physical exam (Acute) Elevated TSH (Acute) Dyslipidemia (Acute) Smoker- last cigarette yesterday Pulmonary nodules (Acute) Asthma (Acute) Orthostatic hypotension (Acute) Idiopathic hypotension (Acute) Dizziness and giddiness (Acute) Syncope and collapse (Acute)- last episode last summer Past Medical History Medical History Asthma Dizziness and giddiness GERD (gastroesophageal reflux disease) Idiopathic hypotension Orthostatic hypotension PTSD (post-traumatic stress disorder) Pulmonary nodules Schizophrenia Smoker Smoker Syncope and collapse Family History Family History Father No problems noted. Mother No problems noted. Surgical History Surgical History H/O colonoscopy History of esophagogastroduodenoscopy (EGD) History of hernia repair History of open reduction and internal fixation (ORIF) procedure History of tonsillectomy Hx of colonoscopy Social History Social History Housing: House Alcohol intake: never Patient Tobacco Use Status: Current everyday Tobacco user Tobacco use type: Cigarette Cigarettes Per Day: 5 Second Hand Smoke Exposure: No Use of substances other than those prescribed or required for medical reasons: No Are you DNR?: No Advance Directives: No Advance Directives Information Provided: Yes Current occupational status: disabled Current occupation: Rt handed Meds Allergies Allergy/AdvReac Type Severity Reaction Status Date / Time Fish Containing Products Allergy Severe ANAPHYLAXIS Verified 12/24/21 14:50 nut - unspecified [nut] Allergy Severe ANAPHYLAXIS Verified 12/24/21 14:50 Home Medications Medication Instructions Recorded Confirmed Last Taken Type multivitamin 1 tab PO DAILY 09/11/20 03/06/22 05/30/21 History venlafaxine 150 mg 150 mg PO DAILY 09/11/20 03/06/22 05/30/21 History capsule,extended release 24 hr (Effexor XR) lorazepam 1 mg tablet 1 mg PO BID PRN tab 11/27/20 03/06/22 Unknown History aripiprazole 20 mg tablet 20 mg PO BEDTIME 04/04/21 03/06/22 Unknown History modafinil 200 mg tablet 200 mg PO BEDTIME 04/04/21 03/06/22 Unknown History droxidopa 100 mg capsule 100 mg PO BID 07/08/21 03/06/22 Unknown History Exam Height,Weight and Vital Signs: Height 5 ft 11 in Weight 113.852 kg Vital Signs Temp Pulse Resp BP Pulse Ox 03/12/22 08:44 97.8 F 79 18 101/66 98 Narrative Narrative: EKG 03/2021 sinus rhythm, 87/Min; no significant ST-T changes and otherwise unremarkable ECHO 12/2020 Conclusions: -? 1. Low normal LV systolic function with moderate LVH with ? ? impaired relaxation filling pattern. EF 50-55% ? 2. Moderately dilated left atrium? 3. Mild mitral regurgitation ? 4. Normal RV systolic pressure ? 5. No pericardial effusion ?? Airway Mallampati Class: III TM Dist: >3cm Neck ROM: Full Loose/Missing/Broken Teeth: Yes (Some broken teeth ) Heart: RRR Lungs: CTAB. No wheezing. Other: Used inhaler this morning Assessment and Plan Assessment Anesthesia Assessment: Anesthesia Plan Discussed Final Anesthetic Review NPO: Yes ASA Class: III Final Preanesthetic Review: No Changes in Pt Med Stat, Meds/Allgs Chart Reviewed, Consent Obtained/Reviewed and Anes Risks/Benef Reviewed Patient Risk: Intermediate Procedure Risk: Low Assessment/Block/Sedation in SS: Assess/Block/Sedation-SS Anesthetic Plan Anesthetic Plan: MAC: Disposition: Standard PACU
[2022-03-12 08:44] VITALS: BP 101/66; PULSE 79; RESP 18; TEMP 36.6; O2SAT 98
--- NOTE | 2022-03-12 08:57 | P.HPSUR_ITS ---
Pre-Procedural Eval Section A Date of Service: 03/12/22 Section B Chief Complaint: benign neoplasm of colon Relevant Family History (Specify if Yes): No Relevant Social History: Tobacco Use Present Medications: see Short Stay Collaborative assessment Medical History: Significant History (Asthma Dizziness and giddiness GERD (gastroesophageal reflux disease) Idiopathic hypotension Orthostatic hypotension PTSD (post-traumatic stress disorder) Pulmonary nodules Schizophrenia Smoker Smoker Syncope and collapse) History of Previous Operations: Relevant previous surgery/procedure and date(s) (H/O colonoscopy History of esophagogastroduodenoscopy (EGD) History of hernia repair History of open reduction and internal fixation (ORIF) procedure History of tonsillectomy Hx of colonoscopy) Allergies: Allergies Allergy/AdvReac Type Severity Reaction Status Date / Time Fish Containing Products Allergy Severe ANAPHYLAXIS Verified 12/24/21 14:50 nut - unspecified [nut] Allergy Severe ANAPHYLAXIS Verified 12/24/21 14:50 Review of Systems Sugical H&P ROS: Negative: Constitution, Cardiovascular, Respiratory, Neurological, Psychiatric, Hem-Onc, Allergic/Immunologic, Gastrointestinal, Genitourinary, Musculoskeletal, Integumentary, Endocrine and Eyes/Ears/Nose/Th roat Exam Surgical H&P Exam: Normal: HEENT, Normal: Heart, Normal: Lungs, Normal: Extremities, Normal: Abdomen, Normal: Skin and Normal: Neurological Plan Diagnosis/Plan: Unchanged I have reviewed the history and physical and performed a pertinent physical examination on my patient. No changes have occurred unless specified.
[2022-03-12] MEDS: Lactated Ringers 1,000 ML 100 ML IVCONT (09:05)
--- NOTE | 2022-03-12 09:26 | P.OP_ITS ---
Operative Note Operative Note Date of Service: 03/12/22 Narrative: Operative Information Procedure Description: Colonoscopy Indication: hx of polyps, screening Anesthesia: MAC COLONOSCOPY Instrument: Olympus variable stiffness ADULT scope 190L Colonoscopy Monitoring: Vital signs and clinical assessment, continuous EKG monitoring, Pulse oximetry, Carbon Dioxide monitoring and blood pressure monitoring were done throughout the procedure. Colon withdrawal time was 16 minutes. Procedure: The patient was placed in the left lateral decubitis position and pre-procedure medications were administered. After a digital rectal examination of the ano-rectum, the video colonoscope was inserted into the rectum and advanced through the colon to the cecum/TI. The colonoscope was slowly withdrawn in a retrograde panoramic fashion and the colon mucosa was carefully examined including a retroflexed view of the rectum. Findings and interventions are described below. Procedure Difficulty: moderate, pressure applied and put on back to get to cecum Findings: Terminal Ileum-not intubated Cecum:normal Ascending Colon: few diverticula seen Transverse Colon -normal Descending Colon: moderate diverticulosis, x 1 sessile polyp 10 mm removed with cold snare Sigmoid Colon: moderate diverticulosis, x 3 sessile polyps 6-9 mm removed with cold snare Rectum: Retroflexion with medium sized internal hemorrhoids, grade I Anorectum - normal Colon preparation: [place] Bowel Preparation Scale Right colon; 2 Transverse colon: 2 Left colon; 3 (0 = Unprepared colon segment with mucosa not seen due to solid stool that cannot be cleared. 1 = Portion of mucosa of the colon segment seen, but other areas of the colon segment not well seen due to staining, residual stool and/or opaque liquid. 2 = Minor amount of residual staining, small fragments of stool and/or opaque liquid, but mucosa of colon segment seen well. 3 = Entire mucosa of colon segment seen well with no residual staining, small fragments of stool or opaque liquid) Impression and Post Procedure Diagnosis: polyps internal hemorrhoids diverticular disease Plan: High fiber diet leaflet Avoid straining at stool, epsom salts and sitz bath, anusol supps or cream Repeat Colonoscopy in 3-4 years due to polyps or earlier if clinically indicated, maybe next time start in prone position Above findings were reviewed with the patient and relevant handouts were provided if indicated.
--- NOTE | 2022-03-12 09:26 | PM.OP ---
Brief Operative Note Date of Service: 03/12/22 Pre-op diagnosis: hx of polyps, screening Post-op diagnosis: same Procedure: see op note Surgeon: Champ Norman MD Anesthesia: MAC Was an Sales Engineer [employer] used for this Procedure?: No Estimated blood loss (mL): 0 Condition: stable Disposition: PACU
[2022-03-12 10:11] VITALS: BP 105/57; PULSE 78; RESP 16; TEMP 36.5; O2SAT 92
[2022-03-12 10:26] VITALS: BP 110/75; PULSE 77; RESP 16; TEMP 36.5; O2SAT 96
== END 2022-03-12 11:00 | disposition home or self-care (01) ==
PROVIDERS: PCP Nurse Practitioner Family; Visit Provider Internal Medicine Gastroenterology
PROC: 0DJD8ZZ Inspection of Lower Intestinal Tract, Via Natural or Artificial Opening Endoscopic (ICD-10-PCS; CPT 45378; principal; 2022-03-12 09:20)
DX: Z12.11 Encounter for screening for malignant neoplasm of colon (principal); Z86.010 Personal history of colon polyps; D12.4 Benign neoplasm of descending colon; D12.5 Benign neoplasm of sigmoid colon; K57.30 Diverticulosis of large intestine without perforation or abscess without bleeding; K64.0 First degree hemorrhoids; K58.2 Mixed irritable bowel syndrome; K31.84 Gastroparesis; K21.9 Gastro-esophageal reflux disease without esophagitis; J45.20 Mild intermittent asthma, uncomplicated; I95.0 Idiopathic hypotension; I95.1 Orthostatic hypotension; R91.8 Other nonspecific abnormal finding of lung field; F43.10 Post-traumatic stress disorder, unspecified; F20.9 Schizophrenia, unspecified; Z79.51 Long term (current) use of inhaled steroids; Z79.899 Other long term (current) drug therapy; F17.210 Nicotine dependence, cigarettes, uncomplicated
CPT/HCPCS: 45385; 88305; J2765

== ENCOUNTER → 2022-03-25 14:22 | Outpatient (BNVA) | payer OTHER, SELFPAY | PROVIDERS: PCP Nurse Practitioner Family; Referring Provider Nurse Practitioner Family; Visit Provider Internal Medicine | DX: I95.0 Idiopathic hypotension (principal); I95.1 Orthostatic hypotension; Z79.899 Other long term (current) drug therapy | CPT/HCPCS: 93005; 99212 ==

== ENCOUNTER → 2022-03-27 11:09 | Outpatient (BNVA) | payer OTHER, SELFPAY | PROVIDERS: PCP Nurse Practitioner Family; Visit Provider Nurse Practitioner | DX: K31.84 Gastroparesis (principal); K21.9 Gastro-esophageal reflux disease without esophagitis; K58.2 Mixed irritable bowel syndrome; D12.6 Benign neoplasm of colon, unspecified | CPT/HCPCS: 99212 ==

== ENCOUNTER 2022-04-17 08:23 | Outpatient (REF) | payer OTHER, SELFPAY ==
[2022-04-17 10:15] LABS: Estimated Average Glucose 126 mg/dL
[2022-04-17 10:34] LABS: Alanine Aminotransferase 39 U/L (0-40); Albumin Level 4.1 g/dL (3.5-5.0); Alkaline Phosphatase 88 U/L (39-117); Anion Gap 12 (12-20); Aspartate Amino Transferase 19 U/L (5-37); Bilirubin Total 0.5 mg/dL (0.0-1.0); Blood Urea Nitrogen 11 mg/dL (9-16); Calcium 8.8 mg/dL (8.4-10.2); Carbon Dioxide 25 mmol/L (22-29); Chloride 106 mmol/L (96-108); Cholesterol 145 mg/dL; Estimated Glomerular Filt Rate > 60; Glucose Fasting 108 mg/dL (60-99); HDL Cholesterol 28 mg/dL; LDL Cholesterol Calculated 84 mg/dl; Potassium 4.5 mmol/L (3.3-5.1); Sodium 138 mmol/L (135-145); Total Protein 6.9 g/dL (6.5-8.0); Triglycerides 169 mg/dL
[2022-04-17 10:58] LABS: TSH reflex Free T4 2.82 uIU/mL (0.32-4.0)
== END 2022-04-17 08:24 | disposition home or self-care (01) ==
LOC: HO.LAB 08:23
PROVIDERS: PCP Nurse Practitioner Family; Visit Provider Nurse Practitioner Family
DX: E11.9 Type 2 diabetes mellitus without complications (principal)
CPT/HCPCS: 36415; 80053; 80061; 83036; 84443

== ENCOUNTER → 2022-06-24 10:58 | Outpatient (BNVA) | payer OTHER, SELFPAY | PROVIDERS: PCP Nurse Practitioner Family; Visit Provider Internal Medicine | DX: R91.8 Other nonspecific abnormal finding of lung field (principal); J45.909 Unspecified asthma, uncomplicated; F17.210 Nicotine dependence, cigarettes, uncomplicated | CPT/HCPCS: 99212 ==

== ENCOUNTER → 2022-10-02 13:22 | Outpatient (BNVA) | payer OTHER, SELFPAY | PROVIDERS: PCP Nurse Practitioner Family; Referring Provider Nurse Practitioner Family; Visit Provider Nurse Practitioner | DX: D12.6 Benign neoplasm of colon, unspecified (principal); K31.84 Gastroparesis; K21.9 Gastro-esophageal reflux disease without esophagitis; K58.2 Mixed irritable bowel syndrome; F17.210 Nicotine dependence, cigarettes, uncomplicated | CPT/HCPCS: 99212 ==

== ENCOUNTER → 2022-10-07 12:30 | Outpatient (BNVA) | payer OTHER, SELFPAY | PROVIDERS: PCP Nurse Practitioner Family; Referring Provider Nurse Practitioner Family; Visit Provider Internal Medicine | DX: I95.0 Idiopathic hypotension (principal); I95.1 Orthostatic hypotension | CPT/HCPCS: 99212 ==

== ENCOUNTER 2023-01-02 09:38 | Outpatient (REF) | payer OTHER, SELFPAY ==
[2023-01-02 10:06] LABS: MANUAL DIFF FLAG NO
[2023-01-02 10:08] LABS: Basophils Percent Auto 0.6 % (0-2); Eosinophils Absolute Auto 0.3 X10*3/uL (0.0-0.4); Eosinophils Percent Auto 4.1 % (0-4); Hematocrit 47.4 % (42.0-52.0); Hemoglobin 15.6 g/dl (14.0-18.0); Imm Gran Abs Auto 0.02 X10*3/uL (0.00-0.03); Imm Gran Pct Auto 0.3 % (0.0-0.4); Lymphocytes Percent Auto 33.1 % (20-40); Mean Corpuscular HGB Conc 32.9 g/dl (31.0-36.0); Mean Corpuscular Volume 94.2 fL (80.0-98.0); Mean Platelet Volume 10.9 fL (9.4-12.4); Monocytes Absolute Auto 0.5 X10*3/uL (0.1-1.2); Monocytes Percent Auto 8.6 % (2-11); Neutrophils Absolute Auto 3.3 x10*3/uL (2.0-8.3); Neutrophils Percent Auto 53.3 % (45-73); Platelet Count 190 X10*3/uL (160-400); Red Blood Count 5.03 X10*6/uL (4.60-5.80); Red Cell Distribution Width 13.3 % (11.0-16.0); White Blood Count 6.2 X10*3/uL (4.8-10.8)
[2023-01-02 11:05] LABS: Alanine Aminotransferase 46 U/L (0-40); Albumin Level 3.9 g/dL (3.5-5.0); Alkaline Phosphatase 88 U/L (39-117); Anion Gap 12 (12-20); Aspartate Amino Transferase 28 U/L (5-37); Bilirubin Total 0.4 mg/dL (0.0-1.0); Blood Urea Nitrogen 17 mg/dL (9-16); Calcium 8.7 mg/dL (8.4-10.2); Carbon Dioxide 23 mmol/L (22-29); Chloride 110 mmol/L (96-108); Cholesterol 197 mg/dL; Estimated Glomerular Filt Rate > 60; Glucose Fasting 126 mg/dL (60-99); HDL Cholesterol 30 mg/dL; LDL Cholesterol Calculated 114 mg/dl; Potassium 4.5 mmol/L (3.3-5.1); Sodium 140 mmol/L (135-145); Total Protein 6.7 g/dL (6.5-8.0); Triglycerides 267 mg/dL
[2023-01-02 11:21] LABS: TSH reflex Free T4 2.15 uIU/mL (0.32-4.0)
== END 2023-01-02 09:39 | disposition home or self-care (01) ==
LOC: HO.LAB 09:38
PROVIDERS: PCP Nurse Practitioner Family; Visit Provider Nurse Practitioner Family
DX: E11.9 Type 2 diabetes mellitus without complications (principal)
CPT/HCPCS: 36415; 80053; 80061; 84443; 85025

== ENCOUNTER 2023-03-03 13:24 | Outpatient (REF) | payer OTHER, SELFPAY ==
--- NOTE | ~2023-03-03 | US_ITS ---
EXAMINATION: US SOFT TISSUE NECK CLINICAL INFORMATION: Localized swelling mass or lump left neck COMPARISON: None available. TECHNIQUE: Ultrasound of the left parotid region FINDINGS: There are 2 lesions in the left parotid gland. There is a 2.5 x 1.7 x 2 cm solid hypoechoic lesion. This is slightly lobulated in shape and demonstrates minimal peripheral vascularity. Appearance is suggestive of a mass. There is a second 1 x 0.8 x 0.9 cm solid hypoechoic. There is mixed peripheral and central flow and appearance is questionable for an intraparotid lymph node. US/US soft tiss head and/or neck IMPRESSION: 2 solid hypoechoic masses in the left parotid gland. Fine-needle aspiration of the larger lesion recommended. Smaller lesion may represent an intraparotid lymph node. Findings will be communicated by the [facility] work flow tobacco hanger.
== END 2023-03-03 13:25 | disposition home or self-care (01) ==
LOC: HO.US 13:24
PROVIDERS: Visit Provider Nurse Practitioner Family
DX: R22.1 Localized swelling, mass and lump, neck (principal)
CPT/HCPCS: 76536

== ENCOUNTER → 2023-03-26 13:38 | Outpatient (BNVA) | payer OTHER, SELFPAY | PROVIDERS: PCP Nurse Practitioner Family; Visit Provider Internal Medicine | DX: R91.8 Other nonspecific abnormal finding of lung field (principal); J45.909 Unspecified asthma, uncomplicated; F17.210 Nicotine dependence, cigarettes, uncomplicated | CPT/HCPCS: 99212 ==

== ENCOUNTER → 2023-04-02 12:14 | Outpatient (BNVA) | payer OTHER, SELFPAY | PROVIDERS: Visit Provider Nurse Practitioner | DX: K21.9 Gastro-esophageal reflux disease without esophagitis (principal); K31.84 Gastroparesis; K58.2 Mixed irritable bowel syndrome | CPT/HCPCS: 99212 ==

== ENCOUNTER 2023-05-13 08:53 | Outpatient (REF) | payer OTHER, SELFPAY ==
--- NOTE | ~2023-05-13 | CT_ITS ---
EXAMINATION: CT CHEST SCREENING CLINICAL INFORMATION: Nicotine dependence. COMPARISON: CT chest 12/17/2020. TECHNIQUE: Multidetector volumetric CT imaging of the chest is performed without contrast using low dose technique. Additional 2D coronal and sagittal reformatted images and axial 3D maximum intensity projection (MIP) images are generated on the CT workstation. This CT examination was performed using dose optimization techniques as appropriate, variously including the following: *Automated exposure control *Adjustment of mA and/or kV according to patient size (this includes techniques or standardized protocols for targeted exams where dose is matched to indication/reason for exam; i.e. extremities or head) *Use of iterative reconstruction technique DLP: 74 mGy-cm FINDINGS: LUNGS: The lungs are well expanded without acute pneumonic process. There are bilateral small pulmonary nodules. The largest right lower lobe pleural-based nodule measures 1.2 cm on axial slice 406/6, previously it measured 1 cm. There are no new nodules visualized. MEDIASTINUM: The thyroid lobes are symmetrical and normal. The central trachea and the bronchi are widely patent. The heart size and the great vessels are normal caliber. No pericardial effusion is seen. CORONARY ARTERY CALCIFICATION: None visualized on this study. PLEURA: There is no pleural effusion. No pleural mass or thickening. AXILLA: No lymphadenopathy. UPPER ABDOMEN: The visualized liver, spleen, pancreas and bilateral adrenal glands are unremarkable. OSSEOUS STRUCTURES: Unremarkable. CT/CT lung screen follow up IMPRESSION: Multiple bilateral pulmonary nodules are stable except for the largest 1.2 cm nodule in the right lower lobe which has slightly increased from 1.0 cm on the previous study. No abnormal mediastinal, axillary or hilar lymph nodes are seen. ASSESSMENT: Lung-RADS category 2: Benign RECOMMENDATION: Low-dose annual CT chest
== END 2023-05-13 08:54 | disposition home or self-care (01) ==
LOC: HO.CT 08:53
PROVIDERS: PCP Nurse Practitioner Family; Visit Provider Internal Medicine
DX: R91.8 Other nonspecific abnormal finding of lung field (principal); F17.200 Nicotine dependence, unspecified, uncomplicated
CPT/HCPCS: 71250